=== PATIENT | female | born 1955 | race Caucasian/White ===

== ENCOUNTER → 2017-01-03 16:55 | Outpatient (CLI) | payer MEDICARE ==
[2016-01-30 09:42] VITALS: BMI 45.5
[~2017-01-03 16:55] MED LIST: ACETAMINOPHEN325 MG PO; ADVAIR 250/501 DISK INH; ALBUTEROL2.5 MG/3 M INH; ALDACTONE25 MG PO; APAP325 MG PO; CARDIZEM 90 MG90 MG PO; CARDIZEM SR60 MG PO; CARDIZEM SR90 MG PO; CHANTIX 1 MG TAB1 MG PO; CHRONULAC30 ML PO; CORDARONE200 MG; COREG12.5 MG PO; COREG25 MG PO; COUMADIN2 MG PO; COUMADIN2.5 MG PO; COUMADIN5 MG PO; CYCLOBENZAPRINE10 MG PO; FLORANEX / LACT1 TAB PO; FLUTICASONE PRO16 GM NASAL; FUROSEMIDE40 MG PO; GLUCOPHAGE500 MG PO; GLUCOTROL 5 MG T5 MG PO; HYDRALAZINE HCL25 MG PO; HYDROCODON-ACE1 EAC9 PO; HYDROCODONE-APA1 TAB PO; IPRAT-ALBUT 0.5-3 ML UPD; JANTOVEN2.5 MG PO; JANTOVEN5 MG PO; K-DUR20 MEQ PO; K-TAB10 MEQ PO; LASIX40 MG PO; LASIX80 MG PO; LEVAQUIN750 MG PO; LIPITOR80 MG PO; LISINOPRIL10 MG PO; LISINOPRIL2.5 MG PO; MECLIZINE HCL25 MG PO; MEDROL DOSE PACK4 MG; OMEPRAZOLE40 MG; OXYBUTYNIN CHLOR5 MG PO; PREDNISONE10 MG PO; PRILOSEC20 MG PO; PROVENTIL HFA6.7 GM INH; REQUIP5 MG PO; SINGULAIR10 MG PO; SPIRIVA HANDIHALER; SPIRIVA18 MCG INH; ZANAFLEX4 MG PO; ZITHROMAX250 MG; [UNRECOGNIZED DRUG - OTHER]
== END | disposition home or self-care (01) ==
LOC: D.MAMMO 12-07 16:15
DX: Z12.31 Encounter for screening mammogram for malignant neoplasm of breast (principal)

== ENCOUNTER 2017-01-11 09:29 | Outpatient (CLI) | payer MEDICARE, MEDICAID ==
[~2017-01-11] VITALS: Ht 165.1 cm; Wt 109.1 kg
[~2017-01-11 09:29] MED LIST changes: -COREG12.5 MG PO; -FUROSEMIDE40 MG PO; -LISINOPRIL2.5 MG PO; -MECLIZINE HCL25 MG PO; -MEDROL DOSE PACK4 MG; -OMEPRAZOLE40 MG; -ZITHROMAX250 MG
--- NOTE | 2017-01-11 14:13 | NUR ---
1400 IV STARTED BY ANGELICA NERI RN. 1ST UNIT CHECKED AT BEDSIDE BY THIS NURSE AND ANGELICA NERI RN, INITIATED BY ALARIS PUMP AT 50/CC/HR. ASSESSMENT INITIATED.
[2017-01-11 14:26] VITALS: BP 100/33; Ht 165.1 cm; Wt 109.1 kg
--- NOTE | 2017-01-11 17:45 | NUR ---
1400 IV STARTED BY ANGELICA NERI RN. RIGHT ARM 20 G JELCO. REPORT FROM ANGELICA NERI. RN. PT. HAS ATE LUNCH. BLOOD CHECKED AT BEDSIDE BY THIS NURSE AND ANGELICA NERI RN. INITIATED AT BEDSIDE BY ALARIS PUMP AT 50/CC/HR. 1415. DENIES PROBLEMS RATE INCREASED TO 100/CC/HR. PT. STATES ASSESSMENT INITATED. STATES USES O2 SOMETIMES AT HOME. O2 PROVIDED AT 2L/NC. PT. REQUESTED AND SERVED ICE. 1430 RATE INCREASED TO 150/CC/HR 1445 ASSISSTED UP TO BR. VOIDS QS. DENIES PROBLEMS. COLA SERVED PER REQUEST.
--- NOTE | 2017-01-11 17:51 | NUR ---
1515 DENIES NEEDS. IV SITE PATENT. 1545 BLOOD GOING WELL. RATE 200/CC/HR. 1608 BLOOD HAS COMPLETED, LINE BEING FLUSHED WITH NS. UP TO BR VOIDS 1708 1 HOUR CHECK. DENIES PROBLEMS, IV DC'D WITH CATH INTACT. PRESSURE FOR 5 MINUTES HELT. DC INSTS REVIEWED. DAUGHTER TO DRIVE HER HOME. STATES WILL SEE DR. SHELLEY TOMORROW.
== END 2017-01-11 17:25 | disposition home or self-care (01) ==
LOC: D.OPS 09:29
DX: D50.9 Iron deficiency anemia, unspecified (principal)

== ENCOUNTER 2017-01-19 15:05 | Inpatient (IN) | payer MEDICARE, MEDICAID ==
[~2017-01-19] VITALS: Ht 165.1 cm; Wt 120.4 kg
[2017-01-19 16:01] LABS: BASOPHILS 0.1 % (0.0-2.0); EOSINOPHILS 0.4 % (0-7); HEMATOCRIT 36.6 % (36.0-48.0); HEMOGLOBIN 10.1 g/dL (12-16); IMMATURE GRANULOCYTES 0.5 % (0-5); LYMPHOCYTES 10.9 % (15-50); MCH 23.8 pg (26.0-34.0); MCHC 27.6 g/dL (31.0-37.0); MCV 86.3 fL (80.0-100.0); MEAN PLATELET VOLUME 10.7 fL (7.4-10.4); MONOCYTES 12.1 % (2-11); RBC 4.24 10x6/uL (4.00-5.40); RDW 18.9 % (11.5-14.5); WBC 7.5 10x3/uL (4.8-10.8)
[2017-01-19 16:07] LABS: PLATELET COUNT 188 10x3/uL (130-400)
[2017-01-19 16:30] LABS: ALBUMIN 3.6 g/dL (3.4-5.0); ANION GAP 13.4 mmol/L (8-16); BILIRUBIN - TOTAL 0.97 mg/dL (0.2-1.3); CALCIUM 8.1 mg/dL (8.5-10.1); CARBON DIOXIDE 28.2 mmol/L (21.0-32.0); CREATININE - SERUM 1.8 mg/dL (0.6-1.3); POTASSIUM - SERUM 5.6 mmol/L (3.5-5.1); PROTEIN - SERUM 6.9 g/dL (6.4-8.2)
[2017-01-19] MEDS ORDERED: MECLIZINE HCL25 MG PO (20:58)
[2017-01-19] MEDS ORDERED: CARDIZEM 90 MG90 MG PO (21:00)
[2017-01-19] MEDS ORDERED: COREG12.5 MG PO (21:01)
[2017-01-19] MEDS ORDERED: FUROSEMIDE40 MG PO (21:01)
[2017-01-19] MEDS ORDERED: OMEPRAZOLE40 MG (21:02)
[2017-01-19] MEDS ORDERED: LISINOPRIL2.5 MG PO (21:03)
[2017-01-19] MEDS ORDERED: ZITHROMAX250 MG (21:03)
[2017-01-19] MEDS ORDERED: MEDROL DOSE PACK4 MG (21:04)
--- NOTE | 2017-01-20 00:22 | NUR ---
2024 RECIEVED TO ROOM 2233 VIA WHEELCHAIR FROM ER ACCOMPANIED BY STAFF. ALERT,ORIENTED. SL TO RIGHT ARM INTACT WIHTOU REDNESS OR EDEMA NOTED. COMPLAINTS OF SWELLING TO EXTREMITIES. ORIENTED TO ROOM. CL IN REACH.
[2017-01-20 02:26] VITALS: BP 143/62; Ht 165.1 cm; Wt 120.4 kg
--- NOTE | 2017-01-20 02:36 | NUR ---
RN NOTE: ADMISSION ASSESSMENT COMPLETE. PT C/O PAIN IN LEGS, ESPICIALLY RIGHT KNEE. REPORTED TO SKILLS TRAINER WHO IS DEVI SANDOVAL FOR MEDICATION.
--- NOTE | 2017-01-20 03:10 | NUR ---
LYING QUIETLY,WATCHING TV. NO COMPLAINTS VOICED. FREDY CRUMP [facility].
[2017-01-20 06:13] LABS: BASOPHILS 0.3 % (0.0-2.0); EOSINOPHILS 0.9 % (0-7); HEMATOCRIT 35.6 % (36.0-48.0); HEMOGLOBIN 9.7 g/dL (12-16); IMMATURE GRANULOCYTES 0.4 % (0-5); LYMPHOCYTES 13.4 % (15-50); MCH 23.2 pg (26.0-34.0); MCHC 27.2 g/dL (31.0-37.0); MEAN PLATELET VOLUME 10.2 fL (7.4-10.4); MONOCYTES 11.4 % (2-11); NEUTROPHILS 73.6 % (40-80); PLATELET COUNT 187 10x3/uL (130-400); RBC 4.19 10x6/uL (4.00-5.40); RDW 18.9 % (11.5-14.5); WBC 6.7 10x3/uL (4.8-10.8)
[2017-01-20 06:36] LABS: ALBUMIN 3.5 g/dL (3.4-5.0); ANION GAP 10.2 mmol/L (8-16); BILIRUBIN - TOTAL 1.02 mg/dL (0.2-1.3); CALCIUM 8.5 mg/dL (8.5-10.1); CARBON DIOXIDE 29.7 mmol/L (21.0-32.0); POTASSIUM - SERUM 4.9 mmol/L (3.5-5.1); PROTEIN - SERUM 6.7 g/dL (6.4-8.2)
[2017-01-20 07:26] LABS: INR 6.24 (0.85-1.17); PROTIME 56.4 SECONDS (11.6-15.0)
--- NOTE | 2017-01-20 07:40 | NUR ---
WALKING ROUNDS,WITHOUT DISTRESS.CALL LIGHT IN REACH
[2017-01-20 08:51] VITALS: BP 112/40
--- NOTE | 2017-01-20 09:00 | NUR ---
ASSESSMENT PER FLOW SHEET.PT WITHOUT DISTRESS.CALL LIGHT IN REACH
[2017-01-20 11:49] VITALS: BP 123/50
--- NOTE | 2017-01-20 14:02 | NUR ---
NUTRITION MONITORING & EVAL CHART REVIEWED. PT RESTING. TOLERATING AHA DIET. 25% INTAKE LUNCH, 100% INTAKE ENSURE. WILL CONTINUE TO PROVIDE DIET, ENSURE. MONITOR PT PROGRESS. RD FOLLOWING
--- NOTE | 2017-01-20 14:36 | NUR ---
UP IN SHOWER.YELLOW/BROWN DRAINAGE NOTED COMING OUT OF LEFT EAR.PT REPORTS SOME DISCOMFORT.ALSO STATES IN PAST SHE HAD EAR INFECTION.
[2017-01-20 15:37] VITALS: BP 109/39
--- NOTE | 2017-01-20 19:07 | NUR ---
REMAINS WITHOUT NEEDS,WITHOUT DISTRESS.CONT PLAN OF CARE
--- NOTE | 2017-01-20 20:10 | NUR ---
PATIENT SLEEPING ON HER SIDE. NO VISIBLE SIGNS OF DISTRESS. BED IN LOWEST POSITION AND CALL LIGHT WITHIN REACH.
[2017-01-20 21:45] VITALS: BP 103/33
[2017-01-20 23:00] VITALS: BP 101/42
[2017-01-21 04:00] VITALS: BP 99/53
[2017-01-21 06:45] LABS: BASOPHILS 0.4 % (0.0-2.0); EOSINOPHILS 1.3 % (0-7); HEMATOCRIT 35.3 % (36.0-48.0); HEMOGLOBIN 9.7 g/dL (12-16); IMMATURE GRANULOCYTES 0.2 % (0-5); LYMPHOCYTES 17.2 % (15-50); MCH 23.3 pg (26.0-34.0); MCHC 27.5 g/dL (31.0-37.0); MCV 84.7 fL (80.0-100.0); MEAN PLATELET VOLUME 9.8 fL (7.4-10.4); MONOCYTES 18.8 % (2-11); NEUTROPHILS 62.1 % (40-80); PLATELET COUNT 158 10x3/uL (130-400); RBC 4.17 10x6/uL (4.00-5.40); RDW 18.8 % (11.5-14.5)
[2017-01-21 06:53] LABS: WBC 4.6 10x3/uL (4.8-10.8)
[2017-01-21 07:17] LABS: INR 3.92 (0.85-1.17); PROTIME 38.9 SECONDS (11.6-15.0)
[2017-01-21 07:25] LABS: ALBUMIN 3.6 g/dL (3.4-5.0); ANION GAP 9.9 mmol/L (8-16); BILIRUBIN - TOTAL 0.93 mg/dL (0.2-1.3); CALCIUM 8.3 mg/dL (8.5-10.1); CARBON DIOXIDE 30.6 mmol/L (21.0-32.0); POTASSIUM - SERUM 5.5 mmol/L (3.5-5.1); PROTEIN - SERUM 6.8 g/dL (6.4-8.2)
[2017-01-21 08:57] VITALS: BP 97/32
--- NOTE | 2017-01-21 09:00 | NUR ---
ASSESSMENT PER FLOW SHEET.PT WITHOUT DISTRESSS.CALL LIGHT IN REACH
[2017-01-21 12:24] VITALS: BP 135/69
--- NOTE | 2017-01-21 12:30 | NUR ---
HAS BEEN UP AT BEDSIDE MULTIPLE TIMES AND HAS AMBULATED IN HALLS.MONITOR
[2017-01-21 16:02] VITALS: BP 113/39
--- NOTE | 2017-01-21 19:44 | NUR ---
REMAINS WITHOUT DISTRESS.WITHOUT CHANGE.CONT PLAN OF CARE
[2017-01-21 20:00] VITALS: BP 102/62
[2017-01-22] VITALS: BP 110/45
--- NOTE | 2017-01-22 01:03 | NUR ---
ASSESSED AT THE BEGINNING OF THE SHIFT. PT IS ALERT AND ORIENTED, ABLE TO VERBALIZE NEEDS. SHE IS ABLE TO GET UP BY HERSELF AND WALKS EVEN INTO THE HALLS. SHE IS AWARE THAT SHE IS ON A FLUID RESTRICTION AND IS DOING WELL. HER IV SISTE IS SALINE LOCKED AND SHE IS SLEEPING OFF AND ON WITH NO COMPLAINTS VOICED. THE BED IS LOW, LOCKED, RAILS UP X'S 2 WITH THE CALL LIGHT AT HAND.
[2017-01-22 04:00] VITALS: BP 114/47
[2017-01-22 06:07] LABS: BASOPHILS 0.4 % (0.0-2.0); EOSINOPHILS 1.3 % (0-7); HEMATOCRIT 34.4 % (36.0-48.0); HEMOGLOBIN 9.6 g/dL (12-16); IMMATURE GRANULOCYTES 0.4 % (0-5); LYMPHOCYTES 15.2 % (15-50); MCH 23.3 pg (26.0-34.0); MCHC 27.9 g/dL (31.0-37.0); MCV 83.5 fL (80.0-100.0); MEAN PLATELET VOLUME 10.3 fL (7.4-10.4); MONOCYTES 10.6 % (2-11); NEUTROPHILS 72.1 % (40-80); PLATELET COUNT 164 10x3/uL (130-400); RBC 4.12 10x6/uL (4.00-5.40); RDW 18.7 % (11.5-14.5); WBC 4.5 10x3/uL (4.8-10.8)
[2017-01-22 06:45] LABS: ALBUMIN 3.6 g/dL (3.4-5.0); ANION GAP 10.9 mmol/L (8-16); BILIRUBIN - TOTAL 1.04 mg/dL (0.2-1.3); CALCIUM 8.2 mg/dL (8.5-10.1); CARBON DIOXIDE 28.2 mmol/L (21.0-32.0); CREATININE - SERUM 1.9 mg/dL (0.6-1.3); POTASSIUM - SERUM 5.1 mmol/L (3.5-5.1); PROTEIN - SERUM 6.9 g/dL (6.4-8.2)
[2017-01-22 07:15] LABS: PROTIME 31.5 SECONDS (11.6-15.0)
[2017-01-22 07:16] LABS: INR 3.01 (0.85-1.17)
[2017-01-22 07:53] VITALS: BP 102/51
--- NOTE | 2017-01-22 08:00 | NUR ---
WALKING ROUNDS.PT WITHOUT DISTRESS.DENIES NEEDS.CALL LIGHT IN REACH
[2017-01-22 11:10] VITALS: BP 123/54
--- NOTE | 2017-01-22 14:14 | NUR ---
* Is the patient Alert and Oriented? Yes 0 * How many steps to enter\exit or inside your home? Ramp 0 * PCP Dr. Lozada 0 * Pharmacy [facility] * Preadmission Environment Home Alone 0 * ADLs Independent 0 * Equipment Bedside [facility] Bed Nebulizer Oxygen Rolling Walker Walker 0 * List name and contact numbers for known caregivers / representatives who currently or will assist patient after discharge: Castro King 0 * Additional services required to return to the preadmission environment? No 0 * Can the patient safely return to the preadmission environment? Yes 0 * Has this patient been hospitalized within the prior 30 days at any hospital? No 01/22/2017 14:14 DCP: Discharge Planning Patient Name: MANUELA BILLINGS Admission Status: ER Accout number: [id number] Admission Date: 01-19-2017 : 1955 Admission Diagnosis:EDEMA, UNSPECIFIED Attending: NARAYAN Current LOS: 3 Anticipated DC Date: 01-22-2017 Planned Disposition: Home Primary [facility] Discharge Planning Comments: CM met with patient to assess dc plans/needs. Patient states she lives alone & is independent with all ADL's & IADL's. She has had home health in the past with [facility]. Her son & his live next door and are able to assist with any needs. At dc, she will return home. No needs identified or verbalized at this time.
--- NOTE | 2017-01-22 15:23 | NUR ---
DISCHARGE INSTRUCTIONS,STATES UNDERSTANDING.IV DCD CATH INTAC.
--- NOTE | 2017-01-22 15:24 | NUR ---
LEFT FLOOR VIA WHEELCHAIR
--- NOTE | 2017-02-01 08:42 | EC ---
PATIENT:MANUELA BILLINGS DATE OF SERVICE: 01/19/17 SEX: F MEDICAL RECORD: [id number] DATE OF : [birth year] LOCATION:D.[facility] [place] AGE OF PATIENT: 61 ADMISSION DATE: 01/19/17 REFERRING PHYSICIAN: INTERPRETING PHYSICIAN: MELECIO ENGLAND MD ECHOCARDIOGRAM REPORT ECHO CHARGES 4 ECHO COMPLETE CLINICAL DIAGNOSIS: SOB/SWELLING HX OF AVR ECHOCARDIOGRAPHIC MEASUREMENTS (adult normal given) AC root (d.<3.7cm) 3.2 LV Septum d (<1.2 cm> 1.3 Valve Excursion 1.8 LV Septum (systole) 1.4 Left Atria (s.<4.0cm> 4.8 LVPW d(<1.2cm) 1.2 RV (d.<2.3cm) 5.1 LVPW (sytole) 1.4 LV diastole(<5.6CM) 5.4 MV E-F(>70mm/sec) LV systole 2.7 LVOT Diameter 1.6 MV exc.(>10mm) 1.1 Est.ejection fraction (50-75%) Pericardial Effusion N DOPPLER: LVIT A 81.0 E 161 LA 140 RVSP 75 LVOT AOP1/2T Asc. Ao 384 RVOT 64 RA PA 173 AV Gradient Peak 58.96 AV Mean 41.03 AV Area 1.1 MV Gradient Peak 16.39 MV Mean 3.35 MV Area COMMENTS: Nylon Hot Wire Cutter: Caio CADET Clean Out Driller Helper:2 Dr. Pittman TAPE# PACS DATE OF SERVICE: 01/20/2017 Adequate 2D echo, color flow and spectral Doppler, and M-mode. LVH is present. LV internal dimensions are normal. Wall motion is normal. EF is greater than or equal to 55%. Mechanically, aortic valve prosthesis is noted with mildly elevated velocities. Her mildly elevated velocities peak gradient only of 50 mmHg putting this in the moderate range. Left atrium is dilated at 4.8 cm. Mitral valve shows no prolapse. No significant MR. Right-sided chambers grossly normal. Moderate plus TR. Estimated PA systolic pressures are elevated at 75 mmHg. ECHOCARDIOGRAM REPORT [id number] MANUELA BILLINGS TRANSINT:[id number] Voice Confirmation ID: [id number] DOCUMENT ID: [id number] 01/30/2017 Edited to correct date of service, dmm. MELECIO ENGLAND MD at 0842 CC: [id number] DICTATION DATE: 01/21/17 152 CORE LAYER MACHINE OPERATOR: 01/22/17 0931 DIS IN 01/22/17 [facility] [address] [place] [address]
== END 2017-01-22 15:24 | disposition home or self-care (01) | DRG 291 ==
LOC: D.ER 15:05 → D.SDCHOLD 17:56 → D.MS 17:56
PROVIDERS: Family Medicine; ADMIT Family Medicine
DX: I11.0 Hypertensive heart disease with heart failure (principal); J96.00 Acute respiratory failure, unspecified whether with hypoxia or hypercapnia; N17.9 Acute kidney failure, unspecified; I50.31 Acute diastolic (congestive) heart failure; J44.9 Chronic obstructive pulmonary disease, unspecified; J45.909 Unspecified asthma, uncomplicated; Z99.81 Dependence on supplemental oxygen; E11.9 Type 2 diabetes mellitus without complications; N28.9 Disorder of kidney and ureter, unspecified; E87.5 Hyperkalemia; G47.33 Obstructive sleep apnea (adult) (pediatric); Z95.2 Presence of prosthetic heart valve; Z79.01 Long term (current) use of anticoagulants; I48.2 Chronic atrial fibrillation; F17.200 Nicotine dependence, unspecified, uncomplicated